=== PATIENT | male | born 1975 | race Caucasian/White ===

== ENCOUNTER 2021-07-09 11:19 | Emergency (ER) | payer BC, SELFPAY ==
[~2021-07-09] VITALS: Ht 172.7 cm; Wt 87.0 kg
[2021-07-09] MEDS ORDERED: OMEP10CASR PO (11:24)
[2021-07-09] MEDS ORDERED: diphenhydrAMINE 50MG/ML VIAL (J1200) IV STA (12:48)
[2021-07-09] MEDS ORDERED: METOCLOPRAMIDE INJ 10MG/2ML VIAL (J2765 PER 1) IV ONE (12:50)
[2021-07-09] MEDS ORDERED: ACETAMINOPHEN 325 MG TAB PO ONE (12:50)
[2021-07-09] MEDS ORDERED: NS 1,000 ML IV ONE (12:50)
[2021-07-09 13:30] LABS: BASO # 0.1 10^3/uL (0.0-0.2); BASO % 0.6 % (0.0-1.0); EOS # 0.1 10^3/uL (0.0-0.5); EOS % 1.1 % (0.0-3.0); HEMOGLOBIN 14.7 g/dl (13.5-17.5); LYMPH % 36.2 % (24.0-44.0); MEAN CORPUSCULAR HEMOGLOBIN 31.5 pg (27.0-33.0); MEAN CORPUSCULAR HGB CONC 34.2 g/dl (32.0-36.5); MEAN CORPUSCULAR VOLUME 92.3 fl (80.0-96.0); MONO # 0.6 10^3/uL (0.0-0.8); MONO % 6.9 % (2.0-8.0); NEUTROPHILS # 4.5 10^3/uL (1.5-8.5); PLATELET COUNT, AUTOMATED 315 10^3/uL (150-450); RED BLOOD COUNT 4.66 10^6/uL (4.30-6.10); WHITE BLOOD COUNT 8.1 10^3/uL (4.0-10.0)
[2021-07-09 13:57] LABS: ERYTHROCYTE SEDIMENTATION RATE 9 mm/hr (0-15)
[2021-07-09 14:30] VITALS: BP 132/88
== END 2021-07-09 15:17 | disposition home or self-care (01) ==
LOC: M ED 11:19
DX: G44.209 Tension-type headache, unspecified, not intractable (principal); K21.9 Gastro-esophageal reflux disease without esophagitis; F10.10 Alcohol abuse, uncomplicated
CPT/HCPCS: 70450; 72125; 80047; 85025; 85652; 86140; 96361; 96374; 99284; J1200; J2765